=== PATIENT | female | born 1970 | race Caucasian/White ===

== ENCOUNTER 2018-04-06 20:51 | Emergency (ER) | payer OTHER ==
[~2018-04-06 20:51] MED LIST: BACTRIM DS TAB1 EACH PO; MOBIC15 M1 PO; TRAMADOL HCL50 M1 PO
--- NOTE | 2018-04-06 23:01 | ED ANKLE/FOOT INJURY COMPLAINT ---
History of Present Illness General Chief Complaint: Laceration Procedure Stated Complaint: R HEEL LACERATION Source: patient, family Exam Limitations: no limitations Vital Signs & Intake/Output Vital Signs & Intake/Output Vital Signs Date Time Temp Pulse Resp B/P B/P Pulse O2 O2 Flow FiO2 Mean Ox Delivery Rate 04/06 2249 98.0 98 18 186/92 97 Room Air 04/06 2054 98.7 102 18 180/94 98 Room Air Allergies Coded Allergies: NO KNOWN ALLERGIES (03/29/16) Reconcile Medications Cephalexin (Keflex) 500 MG CAPSULE 1 CAP PO BID wound Meloxicam (Mobic) 15 MG TABLET 1 TAB PO DAILY PRN PAIN/INFLAMMATION Sulfamethoxazole/Trimethoprim (Bactrim Ds Tablet) 1 EACH TABLET 1 TAB PO BID INFECTION Tramadol HCl 50 MG TABLET 1 TAB PO Q6P PRN pain Triage Note: PT TO TRIAGE WITH LAC TO BACK OF R ANKLE/HEEL FROM SCREEN DOOR. +PMS. BLEEDING CONTROLLED AT THIS TIME, PRESSURE BEING APPLIED BY PT HOME DRESSING, UNVISUALIZED LAC IN TRIAGE. LAST TETANUS 2 YEARS AGO PER PT. PT STATES "IT'S ABOUT A FEW INCHES." Triage Nurses Notes Reviewed? yes Occurred: just prior to arrival Duration: hour(s): Timing: single episode today Severity: moderate Pain/Injury Location: Right: Heel. Method of Injury: laceration HPI: 48-year-old female presents emergency department complaining of laceration to right heel. Patient states that she was walking and the door swung and hit her right heel causing laceration. Patient applied bandage prior to arrival, bleeding has been controlled. Patient states she initially felt some paresthesias however sensation is normal at this time. Had her last tetanus shot 2 years ago. She reports pain is worse with walking however denies difficulty with range of motion at foot or toes. (Scarlet Nails) Past History Travel History Traveled to [place] past 21 day No Medical History Any Pertinent Medical History? 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 No (Scarlet Nails) Review of Systems Review of Systems Constitutional: Reports: no symptoms. EENTM: Reports: no symptoms. Respiratory: Reports: no symptoms. Cardiovascular: Reports: no symptoms. GI: Reports: no symptoms. Genitourinary: Reports: no symptoms. Musculoskeletal: Reports: no symptoms. Skin: Reports: see HPI. Neurological/Psychological: Reports: no symptoms. Hematologic/Endocrine: Reports: no symptoms. Immunologic/Allergic: Reports: no symptoms. All Other Systems: Reviewed and Negative (Scarlet Nails) Physical Exam Physical Exam General Appearance: well developed/nourished, no apparent distress, alert, awake Head: atraumatic, normal appearance Eyes: Bilateral: normal appearance. Ears, Nose, Throat: hearing grossly normal Neck: normal inspection, supple, full range of motion Cardiovascular/Respiratory: no respiratory distress Back: normal inspection, normal range of motion Leg/Knee/Thigh Left: normal range of motion, normal inspection Leg/Knee/Thigh Right: Negative parish's test, active plantar flexion and extension is intact Ankle Left: normal inspection, normal range of motion Ankle Right: normal range of motion, 3cm linear laceration to posterior heel Foot Left: normal inspection, normal range of motion Foot Right: normal inspection, normal range of motion Neuro/Vascular: normal motor function Tendon: normal tendon function Psychiatric: awake, alert, oriented x 3 Skin: 3cm linear laceration to right heel (Scarlet Nails) Progress Differential Diagnosis: sprain, laceration, achilles tendon injury, contusion Plan of Care: Current Medications Sig/Shyanne Start time Last Medication Dose Stop Time Status Admin Cephalexin 500 MG ONCE ONE 04/07 15 UNVr (Keflex 500MG Cap) 04/07 16 Parish test is negative, patient has intact range of motion involving plantar flexion and extension, Achilles tendon was not visualized during repair of laceration, low suspicion for Achilles tendon injury in this patient. Patient was started on Keflex given moderately deep wound to prevent infection. She was given Ortho referral if she develops difficulty with walking or movement. Wound closed using sutures, patient tolerated procedure well. The patient agrees with the plan of care. Patient discussed with Dr. Colvin who agrees with the plan of care. (Scarlet Nails) Departure Departure Disposition: HOME OR SELF CARE Condition: Stable Clinical Impression Primary Impression: Laceration of heel Qualifiers: Encounter type: initial encounter Laterality: right Qualified Code: S91.311A - Laceration without foreign body, right foot, initial encounter Referrals: Mike APODACA,Thomas Trevizo (PCP/Family) Kalen APODACA,Theo Myers Additional Instructions: You were given a referral to an orthopedic doctor to follow-up with if you have difficulty with walking or movement of your right foot. Begin antibiotics as prescribed prevent infection. Return in 7-10 days for removal of stitches. Monitor for symptoms of infection including redness, swelling, increasing pain, warmth Please note that there might be incidental findings in your evaluation that are unrelated to the current emergency department visit. Please notify your primary care doctor about this emergency department visit in order to obtain and review all of the testing performed so that these incidental findings can be monitored as needed. If you had an x-ray performed, please understand that some fractures may not be seen on the initial set of x-rays. If your symptoms persist you might need a repeat set of x-rays to check for such a fracture. If you had a laceration evaluated, please understand that foreign bodies such as glass or wood may not be visible to the naked eye or on plain x-rays. If the wound becomes red, swollen, increasingly more painful or if there is any drainage from the wound, please have it reevaluated by a physician for the possibility of a retained foreign body. If you're unable to follow up as outlined in the discharge instructions please return to the emergency department. Thank you for choosing the [facility] Emergency Department for your care. It was a pleasure to serve you today. Departure Forms: Customer Survey General Discharge Information Prescriptions: Current Visit Scripts Cephalexin (Keflex) 1 CAP PO BID #14 CAP (Scarlet Nails) PA/TECH[employer]ICIAN [employer] Co-Sign Statement Statement: ED Attending supervision documentation- I saw and evaluated the patient. I have also reviewed all the pertinent lab results and diagnostic results. I agree with the findings and the plan of care as documented in the PA's/[employer]'s documentation. x I have reviewed the ED Record and agree with the PA's/[employer]'s documentation. [] Additions or exceptions (if any) to the PAs/[employer]'s note and plan are summarized below: [] (Marii APODACA,Helio) Procedures Laceration/Wound Repair Laceration/Wound Repair: Wound Location: right heel Wound's Depth, Shape: linear Wound Length (cm): 3 Wound Explored: irrigated extensively Irrigated w/ Saline (ccs): 500 Betadine Prep? Yes Anesthesia: 1% lidocaine Volume Anesthetic (ccs): 6 Wound Repaired With: sutures Suture Size/Type: 4:0, nylon Number of Sutures: 7 Sterile Dressing Applied: Yes Tetanus Status: up to date Progress: Procedure performed by PA student with my direct supervision. Patient tolerated the procedure well. (Kelsie TRENT,Scarlet Markham)
[2018-04-06] MEDS ORDERED: KEFLEX500 M1 PO (23:36)
[2018-04-07 00:22] VITALS: BP 155/80
== END 2018-04-07 00:22 ==
LOC: ERH 20:51
DX: S91.311A Laceration without foreign body, right foot, initial encounter (principal); W22.8XXA Striking against or struck by other objects, initial encounter
CPT/HCPCS: J2001

== ENCOUNTER 2018-04-17 13:07 | Emergency (ER) | payer OTHER ==
[~2018-04-17] VITALS: Ht 162.6 cm; Wt 68.0 kg
[~2018-04-17 13:07] MED LIST changes: +KEFLEX500 M1 PO
[2018-04-17 13:12] VITALS: BP 143/90
[2018-04-17] MEDS ORDERED: BACTRIM DS TAB1 EACH PO (13:52)
--- NOTE | 2018-04-17 13:52 | ED SKIN/ALLERGY COMPLAINT ---
History of Present Illness General Chief Complaint: Suture Removal/Wound Recheck Stated Complaint: SUTURE REMOVAL RT FOOT Source: patient, old records Exam Limitations: no limitations Vital Signs & Intake/Output Vital Signs & Intake/Output Vital Signs Date Time Temp Pulse Resp B/P B/P Pulse O2 O2 Flow FiO2 Mean Ox Delivery Rate 04/17 1312 98.5 88 20 143/90 99 Room Air Allergies Coded Allergies: NO KNOWN ALLERGIES (03/29/16) Reconcile Medications Cephalexin (Keflex) 500 MG CAPSULE 1 CAP PO BID wound Meloxicam (Mobic) 15 MG TABLET 1 TAB PO DAILY PRN PAIN/INFLAMMATION Sulfamethoxazole/Trimethoprim (Bactrim Ds Tablet) 1 EACH TABLET 1 TAB PO BID INFECTION Sulfamethoxazole/Trimethoprim (Bactrim Ds Tablet) 800 MG-160 MG TABLET 1 TAB PO BID skin wound Tramadol HCl 50 MG TABLET 1 TAB PO Q6P PRN pain Triage Note: PT TO ED FOR SUTURE REMOVAL TO RIGHT HEEL. PLACED HERE 04/06. Triage Nurses Notes Reviewed? yes Onset: Gradual Duration: week(s): Timing: recent history Severity: moderate Location: none (right heel) HPI: 48-year-old female presents emergency department for suture removal. Patient sustained laceration to right heel 11 days ago. Laceration was closed with stitches and patient was placed on Keflex antibiotics. Patient presents for suture removal however reports mild erythema surrounding the wound. Mother states that she pressed on the wound this morning and some purulent material came out. Patient has been able to ambulate without difficulty. (Scarlet Nails) Past History Travel History Traveled to [place] past 21 day No Medical History Any Pertinent Medical History? 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 No (Scarlet Nails) Review of Systems Review of Systems Constitutional: Reports: no symptoms. EENTM: Reports: no symptoms. Respiratory: Reports: no symptoms. Cardiovascular: Reports: no symptoms. GI: Reports: no symptoms. Genitourinary: Reports: no symptoms. Musculoskeletal: Reports: see HPI. Skin: Reports: see HPI. Neurological/Psychological: Reports: no symptoms. Hematologic/Endocrine: Reports: no symptoms. Immunologic/Allergic: Reports: no symptoms. All Other Systems: Reviewed and Negative (Scarlet Nails) Physical Exam Physical Exam General Appearance: well developed/nourished, no apparent distress, alert, awake Head: atraumatic, normal appearance Eyes: Bilateral: normal appearance. Ears, Nose, Throat: hearing grossly normal Neck: normal inspection, supple, full range of motion Respiratory: no respiratory distress Back: normal inspection, normal range of motion Extremities: healing laceration to right heel with sutures in place, mild erythema surrounding wound without warmth, swelling, or purulence +tenderness Neurologic/Psych: awake, alert, oriented x 3 Skin: see above (Kelsie TRENT,Scarlet Markham) Progress Differential Diagnosis: abscess/cellulitis, allergic reaction, contact dermatitis, urticaria Plan of Care: There is mild erythema surrounding the patient's healing laceration. Given description of purulence earlier this morning we will initiate antibiotics to cover for possible infection. We will switch to Bactrim at this time. Sutures were removed. Patient agrees with plan of care. She will return for wound check if necessary. Dr. Colvin agrees with this plan of care. (Scarlet Nails) Departure Departure Disposition: HOME OR SELF CARE Condition: Stable Clinical Impression Primary Impression: Visit for suture removal Secondary Impressions: Visit for wound check Referrals: Mike APODACA,Thomas Trevizo (PCP/Family) Additional Instructions: Take antibiotics as prescribed. Apply warm compresses twice daily. Follow up with primary care doctor. Return here if you worsening symptoms other concerns. Please note that there might be incidental findings in your evaluation that are unrelated to the current emergency department visit. Please notify your primary care doctor about this emergency department visit in order to obtain and review all of the testing performed so that these incidental findings can be monitored as needed. If you had an x-ray performed, please understand that some fractures may not be seen on the initial set of x-rays. If your symptoms persist you might need a repeat set of x-rays to check for such a fracture. If you had a laceration evaluated, please understand that foreign bodies such as glass or wood may not be visible to the naked eye or on plain x-rays. If the wound becomes red, swollen, increasingly more painful or if there is any drainage from the wound, please have it reevaluated by a physician for the possibility of a retained foreign body. If you're unable to follow up as outlined in the discharge instructions please return to the emergency department. Thank you for choosing the [facility] Emergency Department for your care. It was a pleasure to serve you today. 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 I have also reviewed all the pertinent lab results and diagnostic results. I agree with the findings and the plan of care as documented in the PA's/DIE STORAGE CLERK's documentation. x I have reviewed the ED Record and agree with the PA's/DIE STORAGE CLERK's documentation. [] Additions or exceptions (if any) to the PAs/DIE STORAGE CLERK's note and plan are summarized below: [] (Marii APODACA,Helio)
== END 2018-04-17 13:55 ==
LOC: ERH 13:07
DX: Z48.02 Encounter for removal of sutures (principal)